=== PATIENT | male | born 1965 | race Two or more races ===

== ENCOUNTER 2020-02-12 22:06 | Inpatient (IN) | payer MEDICAID, OTHER ==
[~2020-02-12] VITALS: Ht 165.1 cm; Wt 85.9 kg
[2020-02-12] MEDS ORDERED: TRAM50TA4 PO (22:17)
[2020-02-12 22:44] LABS: BASOPHILS % (AUTO) 0.9 % (0.0-2.0); EOSINOPHILS % (AUTO) 2.4 % (1.0-6.0); HEMATOCRIT 40.7 % (41-53); HEMOGLOBIN 13.4 g/dL (13.5-17.5); LYMPHOCYTES # (AUTO) 1.5 K/uL (1.0-4.8); LYMPHOCYTES % (AUTO) 15.2 % (22.0-44.0); MEAN CORPUSCULAR HEMOGLOBIN 27.1 pg (26.0-34.0); MEAN CORPUSCULAR HGB CONC 32.8 G/dL (31.0-37.0); MEAN CORPUSCULAR VOLUME 83 fL (80-100); MONOCYTES # (AUTO) 1.1 K/uL (0.1-1.0); MONOCYTES % (AUTO) 11.3 % (2.0-9.0); NEUTROPHILS # (AUTO) 6.8 K/uL (1.8-7.7); NEUTROPHILS % (AUTO) 70.2 % (40.0-70.0); PLATELET COUNT (AUTO) 314 K/uL (150-450); RED BLOOD CELL COUNT(AUTO) 4.94 MIL/uL (4.50-5.90); RED CELL DISTRIBUTION WIDTH 18.6 % (11.5-14.5)
[2020-02-12 22:53] LABS: ANION GAP 10 mmol/L (8-16); CALCIUM, TOTAL 9.1 mg/dL (8.8-10.5); CARBON DIOXIDE 26 mmol/L (22-29); CHLORIDE 104 mmol/L (98-107); CREATININE 1.09 mg/dL (0.60-1.30); GLOMERULAR FILTR. RATE CALC > 60 mL/min (>60); GLUCOSE,RANDOM 132 mg/dL (70-110); POTASSIUM 3.8 mmol/L (3.5-5.1); SODIUM SERUM 140 mmol/L (136-145); UREA NITROGEN, BLOOD 16 mg/dL (7-18)
[2020-02-12 22:58] LABS: ALANINE AMINOTRANSFERASE 57 U/L (12-78); ALBUMIN 3.7 g/dL (3.4-5.0); ALKALINE PHOSPHATASE 88 U/L (46-116); ASPARTATE AMINOTRANSFERASE 45 U/L (15-37); BILIRUBIN,TOTAL 0.9 mg/dL (0.1-1.0); TOTAL PROTEIN, SERUM 7.4 g/dL (6.4-8.2)
[2020-02-12] MEDS ORDERED: HALOPERIDOL 5 MG TABLET PO PRN (23:15)
[2020-02-12] MEDS ORDERED: LORazepam 2 MG TABLET PO PRN (23:15)
[2020-02-12] MEDS ORDERED: ZOLPIDEM TARTRATE 10 MG TABLET PO PRN (23:15)
[2020-02-13 01:30] VITALS: BP 146/94
[2020-02-13] MEDS: BACITRACIN 28.4 GM OINTMENT TP SCH ×2 (08:06→16:58)
[2020-02-13 08:33] LABS: CHOL/HDL RATIO 2.5 (4.2-7.3)
[2020-02-13 08:49] VITALS: BP 118/77
[2020-02-13 19:10] VITALS: BP 121/74
[2020-02-13] MEDS ORDERED: ONDANSETRON HCL 4 MG TABLET PO PRN (19:15)
[2020-02-13] MEDS ORDERED: NICOTINE 14 MG/24 HOUR PATCH TD PRN (19:15)
[2020-02-13] MEDS ORDERED: DOCUSATE SODIUM 100 MG CAPSULE PO PRN (19:15)
[2020-02-13] MEDS ORDERED: MAG HYDROX/AL HYDROX/SIMETH ES 30 ML SUSPENSION UDCUP PO PRN (19:15)
[2020-02-13] MEDS ORDERED: IBUPROFEN 400 MG TABLET PO PRN (19:15)
[2020-02-13] MEDS ORDERED: MAGNESIUM HYDROXIDE SUSPENSION 30 ML UDCUP PO PRN (19:15)
[2020-02-13] MEDS ORDERED: GuaiFENesin/D-METHORPHAN [SUGAR-FREE] 200-20MG/10 ML SYRUP UDCUP PO PRN (19:15)
[2020-02-13] MEDS ORDERED: LOPERAMIDE HCL 2 MG CAPSULE PO PRN (19:15)
[2020-02-13] MEDS ORDERED: ACETAMINOPHEN 325 MG TABLET PO PRN (19:15)
[2020-02-13] MEDS ORDERED: ALBUTEROL SULFATE HFA 90 MCG/PUFF 8 GM INHALER IH PRN (19:15)
[2020-02-13] MEDS ORDERED: CloNIDine HCL 0.1 MG TABLET PO PRN (19:15)
[2020-02-13] MEDS ORDERED: PETROLATUM,WHITE 28 GM JELLY TP PRN (19:15)
[2020-02-13] MEDS: RisperiDONE 1 MG TABLET PO SCH (20:31)
[2020-02-14] MEDS ORDERED: INFLUENZA VIRUS VACCINE QVS 2019-20 (3YR+)/PF 60 MCG/0.5 ML SYRINGE IM ONE (04:45)
[2020-02-14] MEDS: BACITRACIN 28.4 GM OINTMENT TP SCH ×2 (08:43→16:17)
[2020-02-14] MEDS: RisperiDONE 1 MG TABLET PO SCH ×2 (08:46→20:18)
[2020-02-14 09:27] VITALS: BP 121/68
[2020-02-14 21:00] VITALS: BP 119/62
[2020-02-15] MEDS: RisperiDONE 1 MG TABLET PO SCH (09:07)
[2020-02-15 09:10] VITALS: BP 125/72
[2020-02-15] MEDS: BACITRACIN 28.4 GM OINTMENT TP SCH ×2 (12:39→16:09)
[2020-02-15] MEDS ORDERED: RISP1 PO (13:25)
== END 2020-02-15 16:45 | disposition home or self-care (01) | DRG 885 ==
LOC: EMS 22:08 → 3EI 02-13 00:23
PROVIDERS: ADMIT Psychiatry & Neurology Child & Adolescent Psychiatry; ATTEND Psychiatry & Neurology Child & Adolescent Psychiatry
DX: F29 Unspecified psychosis not due to a substance or known physiological condition (principal); F15.10 Other stimulant abuse, uncomplicated; F12.10 Cannabis abuse, uncomplicated; G89.29 Other chronic pain; M54.9 Dorsalgia, unspecified; D64.9 Anemia, unspecified; F10.10 Alcohol abuse, uncomplicated; F22 Delusional disorders; R45.850 Homicidal ideations; Z79.899 Other long term (current) drug therapy
CPT/HCPCS: G0480